=== PATIENT | female | born 1970 | race Caucasian/White ===

== ENCOUNTER 2017-07-27 14:47 | Emergency (ER) | payer BC ==
[~2017-07-27] VITALS: Ht 160 cm; Wt 74.9 kg
[~2017-07-27 14:47] MED LIST: CIPRO500 MG PO; DULOXETINE HCL60 MG PO; FLOMAX0.4 MG PO; METFORMIN HCL1000 MG PO; TORADOL10 MG PO; ZOFRAN4 MG PO
[2017-07-27 15:22] LABS: HEMATOCRIT 43.9 % (36.0-46.0); HEMOGLOBIN 14.9 G/DL (11.9-15.5); MCH 29.9 PG (29.0-34.0); MCHC 33.9 G/DL (30.0-36.0); RBC DIS.WIDTH-CV 13.3 % (11.8-14.6); RBC DIS.WIDTH-SD 42.9 % (39-53); RED BLOOD COUNT 4.99 M/uL (3.80-5.20); WHITE BLOOD COUNT 8.8 K/uL (4.1-10.2)
[2017-07-27 15:25] LABS: APPEARANCE CLEAR ((CLEAR)); BILIRUBIN NEGATIVE; BLOOD NEGATIVE; COLOR STRAW ((YELLOW)); GLUCOSE (STRIP) NEGATIVE; KETONES NEGATIVE; LEUKOCYTES NEGATIVE; NITRITE NEGATIVE; PROTEIN (STRIP) NEGATIVE; SPECIFIC GRAVITY 1.004 (1.000-1.030); UCUL ADDED? NO; UROBILINOGEN 0.2 MG/DL (0.2-1.0)
[2017-07-27 15:32] LABS: CHLORIDE 101 mEq/L (99-109); POTASSIUM 4.1 mEq/L (3.7-5.4)
[2017-07-27 15:33] LABS: SODIUM 138 mEq/L (136-147)
[2017-07-27 15:34] LABS: GLUCOSE 114 mg/dL (70-99)
[2017-07-27 15:38] LABS: CREATININE 0.8 mg/dL (0.6-1.3); GFR ESTIMATE (CALCULATED) > 59 mL/min/
[2017-07-27 15:39] LABS: UREA NITROGEN (BUN) 11 mg/dL (9-23)
[2017-07-27 16:01] LABS: PLAT.SUFFICIENCY ADEQUATE; PLATELET COUNT 302 K/uL (156-360)
[2017-07-27 17:33] VITALS: BP 144/91
== END 2017-07-27 17:43 | disposition home or self-care (01) ==
LOC: EME 14:47
DX: N20.0 Calculus of kidney (principal); Z87.442 Personal history of urinary calculi; E11.9 Type 2 diabetes mellitus without complications; Z79.84 Long term (current) use of oral hypoglycemic drugs; K21.9 Gastro-esophageal reflux disease without esophagitis; F41.9 Anxiety disorder, unspecified; Z88.2 Allergy status to sulfonamides
CPT/HCPCS: 74176; 80048; 81003; 85027; 99281; 99285